=== PATIENT | female | born 2000 | race Caucasian/White ===

== ENCOUNTER 2023-06-03 17:29 | Emergency (ER) | payer OTHER, SELFPAY ==
[2023-06-03 17:35] VITALS: BP 141/74
[2023-06-03 22:39] VITALS: BP 120/59
--- NOTE | 2023-06-03 23:05 | ED.GENMED ---
History of Present Illness
General
Chief Complaint: Musculo-Skeletal Complaint
Source: patient
Exam Limitations: none
Time Seen by Provider: 06/03/23 21:50
Nursing documentation reviewed up to this point in time: agreed with
Travel History
Have you had any contact with someone who has COVID-19?: No
Do you have any symptoms of coronavirus? Fever > 100 degrees, chills, cough, shortness of breath, sore throat, loss of taste or smell, muscle aches, or headache?: No
History of Present Illness
History of Present Illness:
22-year-old female presenting to the emergency department today with concerns of rash to the right hand. She did have an arthrogram to the right shoulder yesterday denies any known complications to this. Has felt that her hand feels somewhat cool
and tingly as well. Denies ischial concerns otherwise denies any specific injuries to the area.
Review of Systems
Review of Systems
Allergies reviewed?: Yes
All Other Systems: ROS reviewed and negative except as documented in HPI and ROS
Phy Exam
Physical Exam
Physical Exam:
GENERAL: Alert , in no apparent distress
EYE: pupils equal and reactive
NECK: Supple, no significant adenopathy.
ENT: o/p clr, mmm.
CARDIAC: Regular rate and rhythm .
LUNGS: Clear breath sounds bilaterally, no acute respiratory distress, no wheezes/rales/rhonchi
ABDOMEN: Soft, without focal tenderness, no r/g, no cvat
NEUROLOGICAL: Alert and oriented, no focal neuro deficits
SKIN: Warm and dry, skin intact.
MUSCULOSKELETAL: Subtle petechial rash to the dorsum of the right hand not extending into the fingers or past the wrist. Good distal pulses normal radial and ulnar pulses normal cap refill no edema, well perfused.
PSYCH: Normal and appropriate interaction.
Course
Orders/Labs/Results
Orders:
Orders
06/03/23 17:39
US Periph Venous UPPER Ext RT Urgent
Comment:
Reason For Exam: recent arthrogram, right hand discolored
Vital Signs
Initial and Last Documented VS:
Initial Vital Signs
Temp Pulse Resp BP Pulse Ox
98.6 F 58 17 141/74 98
06/03/23 17:35 06/03/23 17:35 06/03/23 17:35 06/03/23 17:35 06/03/23 17:35
Last Documented Vital Signs
Temp Pulse Resp BP Pulse Ox
98.6 F 51 18 120/59 100
06/03/23 17:35 06/03/23 22:39 06/03/23 22:39 06/03/23 22:39 06/03/23 22:39
MDM/Problems Addressed
MDM/Problems Addressed:
22-year-old female presenting to the emergency department today with concerns of rash to the right hand and sensation of tingling and coolness to the hand compared to the left side. Yesterday she had an arthrogram to the right shoulder. Denies any
tourniquet or any injury to the hand that she is aware of. Vital signs here normal ultrasound was performed of the right arm without signs of DVT. Otherwise normal distal pulses cap refill normal strength. Objectively patient appears to have
normal blood flow to the right hand. Patient does have a very subtle superficial petechial rash just to the dorsum of the hand not extending past the wrist or into the fingers. Case was discussed with interventional radiology but unfortunately
they are not specifically familiar with this procedure so unable to get any specific views on complications of this. In general here the patient does have good distal pulses good cap refill and no objective abnormalities to the upper extremity
normal ultrasound patient generally well-appearing no additional symptoms or concerns appear stable for outpatient management close outpatient follow-up. Return precautions given
*Critical Care Note
Total Time (30-74mins, 75-104mins- exclusive of procedures): Not Applicable
ED Attending Note
-
Portions of this chart may have been created with voice recognition software.� Occasional wrong word or��sound alike� substitutions may have occurred due to the inherent limitations of voice recognition software.
Discharge Plan
Departure
Patient Disposition: Home (Routine Discharge)
Date of Disposition: 06/03/23
Time of Disposition: 23:38
Patient with high blood pressure during this ER visit?: No
Condition: Good
Covid-19: Not Applicable
Discharge Problem:
Hand pain
Instructions: Muscle and Bone Pain (DC)
Referrals:
NONE,* [Family Provider] -
Activity Restrictions/Additional Instructions:
You came to the emergency department today with concerns of symptoms to your right hand. You had a normal ultrasound and objectively normal pulses and reassuring physical examination. This does not appear to be caused by any likely
life-threatening or emergent pathology. Please rest at home with this and follow-up closely as an outpatient. Return to the emergency department for any worsening, new or concerning symptoms.
Interventions
Interventions:
*ED COVID-19 Vaccine History Last Done: 06/03/23 17:38
ED-Musculoskeletal Assessment Last Done: 06/03/23 22:39
[2023-06-03 23:49] VITALS: BP 109/61
== END 2023-06-03 23:51 | disposition home or self-care (01) ==
LOC: EMR 17:29
PROVIDERS: EMERGENCY PHYSICIAN Emergency Medicine
DX: M79.641 Pain in right hand (principal); R21 Rash and other nonspecific skin eruption
CPT/HCPCS: 99284; 93971